=== PATIENT | female | born 1955 | race Caucasian/White ===

== ENCOUNTER → 2018-10-02 | Outpatient (CLI) | payer OTHER ==
[~2018-10-02] MED LIST: ASPIRIN EC81 M1 PO; ATIVAN0.5 MG PO; BIEST/PROG/TEST; BUDEPRION SR150 MG; BUDEPRION SR150 MG PO; BUSPAR15 MG; CENTRUM SILVER1 EAC4 PO; COMPAZINE10 MG PO; ESTROGEN; HORMONE PILL PO; HYDROXYZINE HCL25 M1; HYDROXYZINE HCL25 M2 PO; LAMICTAL XR25 MG PO; NEXIUM40 MG PO; NORCO 5-325 TA1 EACH PO; OMEPRAZOLE 20 M20 M1 PO; OMEPRAZOLE20 M2; OXYBUTYNIN 5 MG5 M1 PO; PEPCID20 MG PO; PROMETRIUM; RANITIDINE HCL300 M1 PO; SIMVASTATIN40 MG; SIMVASTATIN40 MG PO; VIIBRYD20 MG PO; VIIBRYD40 MG PO; VITAMIN D3400 UNIT PO; WELLBUTRIN XL150 M1 PO; ZOFRAN 4 MG ORAL4 M1 DIS; [UNRECOGNIZED DRUG - CODE]; [UNRECOGNIZED DRUG - OTHER]; [UNRECOGNIZED DRUG - OTHER]; [UNRECOGNIZED DRUG - OTHER] TOP; [UNRECOGNIZED DRUG - REMARK]; [UNRECOGNIZED DRUG - REMARK]
== END ==
LOC: M.RAD 11:08
DX: Z12.31 Encounter for screening mammogram for malignant neoplasm of breast (principal)

== ENCOUNTER → 2018-12-02 | Outpatient (CLI) | payer OTHER | LOC: M.ULTRA 09:30 | DX: G98.8 Other disorders of nervous system (principal); R41.3 Other amnesia ==

== ENCOUNTER 2020-05-25 17:56 | Emergency (ER) | payer OTHER ==
[~2020-05-25] VITALS: Ht 162.6 cm; Wt 72.6 kg
[2020-05-25] MEDS ORDERED: ZETIA10 MG PO (18:08)
[2020-05-25] MEDS ORDERED: LORCET 5-325 M1 EACH PO (18:09)
[2020-05-25] MEDS ORDERED: CELEBREX 200 M200 M1 PO (18:09)
[2020-05-25] MEDS ORDERED: TIZANIDINE HCL2 M1 PO (18:09)
[2020-05-25 20:32] VITALS: BP 88/49
== END 2020-05-25 20:33 | disposition home or self-care (01) ==
LOC: M.ERS 17:56
DX: G89.18 Other acute postprocedural pain (principal); M79.89 Other specified soft tissue disorders; M79.661 Pain in right lower leg; K21.9 Gastro-esophageal reflux disease without esophagitis; Z87.891 Personal history of nicotine dependence; Z88.8 Allergy status to other drugs, medicaments and biological substances; Z90.710 Acquired absence of both cervix and uterus

== ENCOUNTER 2021-02-20 15:06 | Emergency (ER) | payer OTHER ==
[~2021-02-20] VITALS: Ht 154.9 cm; Wt 72.6 kg
[~2021-02-20 15:06] MED LIST changes: +CELEBREX 200 M200 M1 PO; +LORCET 5-325 M1 EACH PO; +TIZANIDINE HCL2 M1 PO; +ZETIA10 MG PO
[2021-02-20] MEDS ORDERED: FAMOTIDINE 20 M20 MG PO (16:42)
[2021-02-20] MEDS ORDERED: ZOFRAN ODT4 MG PO (16:42)
[2021-02-20] MEDS ORDERED: PREDNISONE 20 M20 MG PO (16:42)
[2021-02-20] MEDS ORDERED: EPIPEN0.3 MG/0.1 IM (16:42)
[2021-02-20 17:07] VITALS: BP 120/68
== END 2021-02-20 17:09 | disposition home or self-care (01) ==
LOC: M.ERS 15:06
DX: R22.0 Localized swelling, mass and lump, head (principal); T78.40XA Allergy, unspecified, initial encounter; K21.9 Gastro-esophageal reflux disease without esophagitis; Z87.891 Personal history of nicotine dependence; Z88.8 Allergy status to other drugs, medicaments and biological substances; Z90.710 Acquired absence of both cervix and uterus; X58.XXXA Exposure to other specified factors, initial encounter

== ENCOUNTER 2021-03-03 14:01 | Emergency (ER) | payer OTHER ==
[~2021-03-03] VITALS: Ht 154.9 cm; Wt 72.6 kg
[~2021-03-03 14:01] MED LIST changes: +EPIPEN0.3 MG/0.1 IM; +FAMOTIDINE 20 M20 MG PO; +PREDNISONE 20 M20 MG PO; +ZOFRAN ODT4 MG PO
[2021-03-03 15:11] LABS: ABSOLUTE BASOPHILS 0.1 thou/uL (0.0-0.2); ABSOLUTE EOSINOPHILS 0.1 thou/uL (0.0-0.7); ABSOLUTE LYMPHOCYTES 1.5 thou/uL (0.8-5.3); ABSOLUTE MONOCYTES 0.7 thou/uL (0.0-1.2); ABSOLUTE NEUTROPHILS 4.2 thou/uL (1.6-8.1); BASOPHILS 1.2 %; EOSINOPHILS 1.8 %; HEMATOCRIT 39.4 % (37.0-47.0); HEMOGLOBIN 13.3 gm/dL (12.0-15.0); MCH 30.3 pg (26.0-34.0); MCHC 33.8 g/dL (28.0-37.0); MCV 89.6 fL (80.0-100.0); MONOCYTES 9.9 %; MPV 7.2 fl. (7.2-11.1); NUCLEATED RBCS 0 /100WBC; PLATELET COUNT* 228 thou/uL (150-400); POLYS 64.1 %; RDW-CV 12.2 % (10.5-14.5); WBC 6.6 thou/uL (4.0-11.0)
[2021-03-03 15:20] LABS: CALCIUM 8.8 mg/dL (8.5-10.1); CREATININE 0.7 mg/dL (0.6-1.3); POTASSIUM 3.9 mmol/L (3.5-5.1)
[2021-03-03 15:25] LABS: ALBUMIN 3.8 g/dL (3.4-5.0); TOTAL BILIRUBIN 0.3 mg/dL (<0.1-1.0); TOTAL PROTEIN 7.1 g/dL (6.4-8.2)
[2021-03-03 15:27] LABS: URINE BILIRUBIN NEGATIVE (Negative); URINE BLOOD NEGATIVE (Negative); URINE CLARITY CLEAR; URINE COLOR YELLOW; URINE GLUCOSE-RANDOM NEGATIVE (Negative); URINE KETONES NEGATIVE (Negative); URINE LEUKOCYTES-REFLEX NEGATIVE (Negative); URINE NITRITE-REFLEX NEGATIVE (Negative); URINE PROTEIN NEGATIVE (Negative); URINE SPECIFIC GRAVITY <= 1.005 (1.005-1.030); URINE UROBILINOGEN 0.2 E.U./dl (0.2-1.0)
[2021-03-03] MEDS ORDERED: TRIAMCINOLONE A80 G2 TOP (16:12)
[2021-03-03] MEDS ORDERED: VISTARIL 25 MG25 M1 PO (16:12)
[2021-03-03 16:22] VITALS: BP 124/65
--- NOTE | 2021-03-06 15:12 | EKG ---
[place] [address] ELECTROCARDIOGRAM REPORT Name: RICKI MENDOZA Room: [facility]#: [id number] Admission: 03/03/21 Attend Phys: Discharge: 03/03/21 Date of : 59 Date of Service: 03/03/21 1454 Report #: [id number] THIS REPORT FOR: //name// [facility] ED Test Date: 2021-03-03 Test Time: 14:54:58 Pat Name: RICKI MENDOZA Department: Room: Gender: F Tar Roofer: : 1955 Requested By: Gigi Villanueva Order Number: [id number] MD: Modesto Lynn Measurements Intervals [place] Rate: 97 P: 32 CT: 157 QRS: -11 QRSD: 93 T: 32 QT: 357 QTc: 454 Interpretive Statements Sinus rhythm Low voltage, precordial leads Compared to ECG 07/14/2015 08:03:08 Low QRS voltage now present Electronically Signed On 03-06-2021 15:12:45 CDT by Modesto Lynn [email or web address] <ELECTRONICALLY SIGNED> By: Modesto Lynn MD, [facility] 03/06/21 1512 1454 1454 Modesto Lynn MD, [facility] /EPI
== END 2021-03-03 16:23 | disposition home or self-care (01) ==
LOC: M.ERS 14:01
PROVIDERS: Physician Assistant
DX: R53.83 Other fatigue (principal); R20.8 Other disturbances of skin sensation; K21.9 Gastro-esophageal reflux disease without esophagitis; Z87.891 Personal history of nicotine dependence; Z88.8 Allergy status to other drugs, medicaments and biological substances; Z90.710 Acquired absence of both cervix and uterus

== ENCOUNTER → 2021-05-02 | Outpatient (CLI) | payer OTHER ==
[~2021-05-02] MED LIST changes: +TRIAMCINOLONE A80 G2 TOP; +VISTARIL 25 MG25 M1 PO
== END ==
LOC: M.RAD 13:20
PROVIDERS: ATTEND Family Medicine
DX: Z12.31 Encounter for screening mammogram for malignant neoplasm of breast (principal); N64.89 Other specified disorders of breast